=== PATIENT | male | born 1955 | race Caucasian/White ===

== ENCOUNTER 2022-02-20 21:51 | Emergency (ER) | payer OTHER ==
[~2022-02-20 21:51] MED LIST: ADVAIR 250-501 EACH INH; ASPIR 8181 MG PO; AZITHROMYCIN250 MG PO; CARDURA2 MG PO; CLARITIN OTC; DUONEB 2.5-0.5M1 AMP NEB; LEVAQUIN750 MG PO; MUCINEX 600MG600 MG PO; MUCINEX OTC; PREDNISONE 20MG20 MG PO; PREDNISONE TAPER; PRINIVIL20 MG PO; PROAIR HFA8.5 GM INH; SINGULAIR10 MG PO
[2022-02-20 22:55] LABS: BASOPHIL 0.8 % (0-2); EOSINOPHIL 0.8 % (0-7); HCT 33.3 % (42.0-52.0); HGB 11.5 g/dl (13.2-18.0); LYMPHOCYTE 30.1 % (15-48); MCH 34.4 pg (25.0-31.0); MCHC 34.5 g/dL (32.0-36.0); MCV 99.7 fL (78.0-100.0); MONOCYTE 13.3 % (0-12); MPV 9.1 fL (6.0-9.5); NEUTROPHIL 54.7 % (41-80); NRBC 0; PLT 269 K/uL (150-400); RBC 3.34 M/uL (4.70-6.00); RDW 12.3 % (11.5-14.0); WBC 6.6 K/uL (4.0-10.5)
[2022-02-20 23:08] LABS: PTT 28.6 SECONDS (24.9-34.6)
[2022-02-20 23:13] LABS: INR 1.13 (0.9-1.2); PROTHROMBIN TIME 14.2 SECONDS (11.9-13.9)
[2022-02-20 23:15] LABS: BUN/CREAT RATIO (CALC) 16.3 RATIO; CREATININE 1.35 mg/dL (0.67-1.17)
== END 2022-02-21 01:30 | disposition home or self-care (01) ==
LOC: FER 21:51
PROVIDERS: Nurse Practitioner Family
DX: I83.92 Asymptomatic varicose veins of left lower extremity (principal); J44.9 Chronic obstructive pulmonary disease, unspecified; I10 Essential (primary) hypertension
CPT/HCPCS: 36415; 80048; 85025; 85610; 85730; 99283